=== PATIENT | female | born 1965 | race Caucasian/White ===

== ENCOUNTER 2016-10-17 12:21 | Emergency (ER) | payer SELFPAY ==
[~2016-10-17] VITALS: Ht 152.4 cm; Wt 47.0 kg
[2016-10-17 12:33] VITALS: BP 163/111; PULSE 98; RESP 16; TEMP 98.4; O2SAT 95
[2016-10-17] MEDS ORDERED: ORPHENADRINE INJ 60 MG/2 ML AMP IM ONE (13:15)
[2016-10-17] MEDS ORDERED: ACETAMINOPHEN 500 MG CPLT PO ONE (13:15)
[2016-10-17] MEDS ORDERED: LORazepam 2 MG/ML VIAL IV PUSH ONE (13:15)
[2016-10-17] MEDS ORDERED: GABA100C4 PO (13:18)
[2016-10-17] MEDS ORDERED: DIAZ2 PO (13:18)
[2016-10-17] MEDS ORDERED: NORC5TAB PO (13:18)
[2016-10-17] MEDS ORDERED: CYCL1TAB29 PO (13:21)
[2016-10-17] MEDS ORDERED: TYLE325T PO (13:21)
--- NOTE | 2016-10-17 13:21 | PD ---
HPI Chief Complaint: Anxiety Time Seen by Provider: 13:04 Travel History International Travel<30 days: No Contact w/Intl Traveler<30days: No Traveled to known affect area: No History of Present Illness HPI This is a 50-year-old female who presents to the emergency department with multiple complaints including low back pain, anxiety, stomach discomfort and tingling in her hands and feet and her face, worsening over the past 4-5 days. She says her low back pain is worse when she walks and improved when she rests. She says she's never had pain like this before. She denies any history of IV drug use. She does say that she is on Valium for anxiety and occasionally takes [facility] her Percocet when her fibromyalgia pain gets bad. She just moved here from [place]. She was hoping she could get something for her pain until she could get into a doctor. She denies any fevers or chills. PFSH Past Medical History ?: Not LMP: 2 weeks ago Social History Alcohol Use: No Tobacco Use: Yes Substance Use: No Allergies-Medications (Allergen,Severity, Reaction): Coded Allergies: Demerol (Verified Allergy, Severe, throat swells, 10/17/16) Nonsteroidal Anti-Inflammatory Agts (Verified Allergy, Intermediate, rash , 10/17/16) Review of Systems Except as stated in HPI: all other systems reviewed are Neg Physical Exam Narrative GENERAL:Well appearing, no acute distress SKIN: Warm and dry. HEAD: Atraumatic. Normocephalic. EYES: Pupils equal and round. No injection or drainage. ENT: Moist mucous membranes NECK: Trachea midline. CARDIOVASCULAR: Regular rate and rhythm. No murmur appreciated. RESPIRATORY: Clear to auscultation. Breath sounds equal bilaterally. GASTROINTESTINAL: Abdomen soft, non-tender, nondistended. MUSCULOSKELETAL: No obvious deformities. NEUROLOGICAL: Awake and alert. No obvious cranial nerve deficits. 5 out of 5 strength in the bilateral lower extremities. Sensation is grossly intact. PSYCHIATRIC: Appropriate mood and affect; insight and judgment normal. Data Data Last Documented VS Vital Signs Date Time Temp Pulse Resp B/P Pulse Ox O2 Delivery O2 Flow Rate FiO2 10/17/16 12:33 98.4 98 16 163/111 95 Orders Orphenadrine Inj (Norflex Inj) (10/17/16 13:15) Acetaminophen (Tylenol) (10/17/16 13:15) [facility] Medical Decision Making Medical Screen Exam Complete: Yes Emergency Medical Condition: Yes Interpretation(s) Afebrile, mild tachycardia, hypertension Differential Diagnosis Sciatica, sacroiliitis, epidural abscess, cauda equina syndrome, drug-seeking behavior, panic attack Narrative Course This is a 50-year-old female who presents to the emergency department with anxiety, low back pain and some epigastric discomfort. She has a benign physical exam and a normal neurologic exam and is able to walk without difficulty. I recommended an x-ray of her lumbar spine but the patient declined saying she thought it would waste everyone's time and she didn't think there was anything wrong with her back, she just was hoping to get something for her pain until she can get into a doctor. I don't think the patient has a surgical or neurologic emergency causing her presentation to the emergency department based on her reassuring exam. The patient has several red flags for drug-seeking behavior. She has a stated allergy to NSAIDs and Demerol. She asked for Lortab and Percocet by name. Patient recently moved here and has no e-forsce history. I don't see any indication for opiate therapy in this patient. She was treated for her anxiety and given a muscle relaxer and will be discharged home. Diagnosis Primary Impression: Anxiety Additional Impression: Low back pain Qualified Code: M54.5 - Acute low back pain without sciatica, unspecified back pain laterality Patient Instructions: General Instructions Additional Instructions: If you develop weakness of her legs, difficulty walking, numbness of your legs or your genital or rectal area, loss of your bowel or bladder, or difficulty urinating return to the emergency department immediately. Followup with your primary care physician in one week if your symptoms have not improved. Med/Other Pt SpecificInfo: Prescription(s) given Scripts Acetaminophen (Tylenol)325 Mg [id number] Mg PO Q6H PRN (PAIN SCALE 4 TO 10) #15 TAB Ref 0 Prov:Karen Umanzor MD 10/17/16 Cyclobenzaprine (Flexeril)10 Mg Tab10 Mg PO TID PRN (SPASM) #15 TAB Ref 0 Prov:Karen Umanzor MD 10/17/16 Disposition: 01 DISCHARGE HOME Condition: Stable Karen Umanzor MD Oct 17, 2016 13:21
[2016-10-17] MEDS ORDERED: LORazepam 2 MG/ML VIAL IM ONE (13:30)
== END 2016-10-17 14:40 | disposition home or self-care (01) ==
LOC: PHED 12:21
DX: F41.9 Anxiety disorder, unspecified (principal); R10.13 Epigastric pain; M79.7 Fibromyalgia; Z76.5 Malingerer [conscious simulation]
CPT/HCPCS: 96372; 99283; J2060; J2360